=== PATIENT | male | born 1970 | race African-American/Black ===

== ENCOUNTER 2021-11-07 01:37 | Emergency (ER) | payer OTHER ==
[2021-11-07 02:01] VITALS: BP 110/72; PULSE 91; RESP 18; TEMP 97.6; BMI 24.4
[2021-11-07 02:44] LABS: BASO % 0.7 % (0-2.0); EOS % 2.3 % (0-4.5); HEMATOCRIT 41.9 % (35.4-49); HEMOGLOBIN 14.1 GM/dL (11.7-16.9); LYMPH % 51.1 % (8-40); MCH 32.1 pg (25.7-33.7); MCHC 33.6 g/dl (32.0-35.9); MEAN CELL VOLUME 95.4 fl (80-96); MEAN PLT VOLUME 7.4 fl (7.5-11.1); MONO % 12.7 % (3.8-10.2); NEUT % 33.2 % (42.8-82.8); PLATELET COUNT 217 10^3/uL (134-434); RBC 4.39 M/mm3 (4.00-5.60); RDW 15.1 % (11.9-15.9); WHITE BLOOD COUNT 6.2 K/mm3 (4.0-10.0)
[2021-11-07 03:04] LABS: ALBUMIN 3.6 g/dl (3.4-5.0); CALCIUM 9.2 mg/dL (8.5-10.1)
[2021-11-07 03:05] LABS: BLOOD UREA NITROGEN 9.2 mg/dL (7-18)
[2021-11-07 03:09] LABS: BILIRUBIN,TOTAL 0.7 mg/dL (0.2-1); CREATININE 0.8 mg/dL (0.55-1.3)
[2021-11-07] MEDS ORDERED: LACTATED RINGERS SOLUTION 1,000 ML/1,000 ML INFUS.BAG IV STA (03:58)
[2021-11-07 05:56] LABS: PH,URINE 6.5 (5.0-8.0); URINE APPEARANCE CLEAR; URINE BILIRUBIN NEGATIVE (NEGATIVE); URINE COLOR YELLOW; URINE GLUCOSE (UA) 3+ (NEGATIVE); URINE KETONE NEGATIVE (NEGATIVE); URINE LEUK ESTERASE NEGATIVE (NEGATIVE); URINE NITRITE NEGATIVE (NEGATIVE); URINE PROTEIN TRACE (NEGATIVE)
== END 2021-11-07 06:18 | disposition home or self-care (01) ==
LOC: JER 01:37
DX: R10.2 Pelvic and perineal pain (principal); R73.9 Hyperglycemia, unspecified
CPT/HCPCS: 36415; 74177-TC; 80053; 81003; 85025; 87086; 99285-25; Q9967